=== PATIENT | female | born 1980 ===

== ENCOUNTER 2021-10-14 05:12 | Day surgery (SDC) | payer OTHER ==
[~2021-10-14] VITALS: Ht 157.5 cm; Wt 70.8 kg
[~2021-10-14 05:12] MED LIST: MULTIPLE VITAM1 EAC2 PO
== END 2021-10-14 21:45 | disposition home or self-care (01) ==
LOC: CIR.AMB 05:12
PROVIDERS: ATTEND Obstetrics & Gynecology Gynecologic Oncology
DX: N84.0 Polyp of corpus uteri (principal); Z88.0 Allergy status to penicillin; Z20.822 Contact with and (suspected) exposure to COVID-19